=== PATIENT | female | born 1950 | race Caucasian/White ===

== ENCOUNTER → 2016-10-06 | Outpatient (CLI) | payer OTHER ==
--- NOTE | 2016-10-06 09:30 | US ---
Limited Right Upper Quadrant Ultrasound History: Right upper quadrant pain. Comparison: None available. Findings: The liver is mildly diffusely echogenic with no focal hepatic masses. There is no intrahepa tic biliary dilatation. The common bile duct measures 1 mm and is normal. The gallbladder is normal. The right kidney measures 11.4 cm and has normal echotexture and contour without hydronephrosis. The visible aorta is normal caliber with mild atherosclerosis. The visible portions of the pancreas are n ormal with limited visualization of the pancreatic head and tail. Impression: 1. Probable mild fatty infiltration of the liver. 2. Mild aortic atherosclerosis.
== END ==
LOC: FIMAGING 07:41
PROVIDERS: ATTEND Internal Medicine
DX: R10.11 Right upper quadrant pain (principal); I70.0 Atherosclerosis of aorta

== ENCOUNTER → 2016-12-05 | Outpatient (CLI) | payer OTHER | LOC: BMCIMAGING 07:23 | DX: Z12.31 Encounter for screening mammogram for malignant neoplasm of breast (principal) | CPT/HCPCS: G0202 ==